=== PATIENT | female | born 1960 | race Caucasian/White ===

== ENCOUNTER 2022-10-13 10:36 | Outpatient (CLI) | payer MEDICARE ==
[~2022-10-13 10:36] MED LIST: ALEN70TA60 PO; EST1T PO; HYDR-4353 PO; LEVO75TA7 PO; METH-360 PO; MILN50TA PO; MORP30TA60 PO; POTA-206 PO; PREG150C PO
== END 2022-10-13 23:59 | disposition home or self-care (01) ==
LOC: RAD 10:36
PROVIDERS: ATTEND Family Medicine
DX: K44.9 Diaphragmatic hernia without obstruction or gangrene (principal)
CPT/HCPCS: 74220